=== PATIENT | male | born 1945 | race Caucasian/White ===

== ENCOUNTER → 2016-09-03 | Outpatient (CLI) | payer MEDICARE, OTHER ==
[~2016-09-03] MED LIST: AMILODIPINE
== END | disposition home or self-care (01) ==
LOC: CFH 09:24
PROVIDERS: ATTEND Family Medicine
DX: R14.0 Abdominal distension (gaseous) (principal)
CPT/HCPCS: 76700

== ENCOUNTER 2016-09-29 21:13 | Inpatient (IN) | payer MEDICARE, OTHER ==
[~2016-09-29] VITALS: Ht 177.8 cm; Wt 72.4 kg
[2016-09-29] MEDS ORDERED: SODIUM CHLORIDE FLUSH 10ML SYR IVF ONE (22:00)
[2016-09-29] MEDS ORDERED: ONDANSETRON 2MG/ML, 2ML IVPush ONE (22:00)
[2016-09-29] MEDS ORDERED: SODIUM CHLORIDE 0.9% 1,000ML IVBOLUS ONE (22:00)
[2016-09-29] MEDS ORDERED: MORPHINE SULFATE 4 MG/ML, 1ML IVPush PRN (22:00)
[2016-09-29] MEDS ORDERED: KETOROLAC 30 MG/1 ML IVPush ONE (22:00)
[2016-09-29] MEDS ORDERED: KETOROLAC 30 MG/1 ML ONE (22:11)
[2016-09-29] MEDS ORDERED: MORPHINE SULFATE 4 MG/ML, 1ML ONE (22:11)
[2016-09-29] MEDS ORDERED: ONDANSETRON 2MG/ML, 2ML ONE (22:12)
[2016-09-29 22:21] LABS: BLOOD UREA NITROGEN 21 mg/dL (7-18)
[2016-09-29 22:27] LABS: ASPARTATE AMINO TRANSFERASE 48 U/L (15-37)
[2016-09-29 22:30] LABS: IS PT STATUS REG ER OR PRE ER? YES
[2016-09-30] MEDS ORDERED: AMLO5TAB2 PO (00:27)
[2016-09-30] MEDS ORDERED: LEVO50TA5 PO (00:27)
[2016-09-30] MEDS ORDERED: ZEDIA PO (00:27)
[2016-09-30] MEDS ORDERED: GEMF600T3 PO ×2 (00:27→00:45)
[2016-09-30] MEDS ORDERED: HYDROcodone/APAP 5/325 TABLET PO PRN (00:30)
[2016-09-30] MEDS ORDERED: LABETALOL 5MG/ML 40ML VIAL IVPush PRN (00:30)
[2016-09-30] MEDS ORDERED: POLYETHYLENE GLYCOL 17 GM PACKET PO PRN (00:30)
[2016-09-30] MEDS ORDERED: ONDANSETRON 2MG/ML, 2ML IVPush PRN (00:30)
[2016-09-30] MEDS ORDERED: DOCUSATE 100 MG CAPSULE PO PRN (00:30)
[2016-09-30] MEDS ORDERED: morphine SULFATE 10 MG/ML, 1ML IVPush PRN (00:30)
[2016-09-30] MEDS ORDERED: BISACODYL 10 MG SUPP PR PRN (00:30)
[2016-09-30] MEDS ORDERED: MAGNESIUM CITRATE 300ML ORAL SOL PO ONE (00:30)
[2016-09-30] MEDS ORDERED: ACETAMINOPHEN 325 MG TABLET PO PRN (00:30)
[2016-09-30] MEDS ORDERED: ENOXAPARIN 40 MG/0.4 ML SQ SCH (00:30)
[2016-09-30] MEDS ORDERED: AMLO10TA2 PO (00:45)
[2016-09-30 03:20] VITALS: BP 147/74
[2016-09-30] MEDS: SODIUM CHLORIDE 0.9% 1,000 ML IV SCH ×2 (03:38→16:05)
[2016-09-30 08:30] VITALS: BP 152/78
[2016-09-30 14:30] VITALS: BP_SYST 146; BP_SYST 158; BP_DIAS 64; BP_DIAS 79
[2016-09-30 19:21] VITALS: BP 161/68
[2016-09-30] MEDS ORDERED: DIPHENHYDRAMINE 25 MG CAPSULE PO ONE (20:30)
[2016-10-01 00:48] VITALS: BP 135/61
[2016-10-01 05:29] LABS: ASPARTATE AMINO TRANSFERASE 80 U/L (15-37); BLOOD UREA NITROGEN 13 mg/dL (7-18)
[2016-10-01] MEDS ORDERED: LEVOTHYROXINE 50 MCG TABLET PO SCH (06:00)
[2016-10-01] MEDS ORDERED: BUPIVACAINE/PF-EPI 0.5% 1:200K ONE (06:41)
[2016-10-01 06:50] VITALS: BP 149/72
[2016-10-01] MEDS ORDERED: MEPERIDINE/PF 25MG/0.5ML IVPush PRN (08:00)
[2016-10-01] MEDS ORDERED: PROMETHAZINE 25 MG/ML, 1ML IV PRN (08:00)
[2016-10-01] MEDS ORDERED: HYDROmorphone 1 MG/ML, 1ML IV PRN (08:00)
[2016-10-01] MEDS ORDERED: hydrALAzine 20 MG/ML, 1ML IV PRN (08:00)
[2016-10-01] MEDS ORDERED: FENTANYL PF 100 MCG/2ML IV PRN (08:00)
[2016-10-01] MEDS ORDERED: LABETALOL 5MG/ML, 20ML IV PRN (08:00)
[2016-10-01] MEDS ORDERED: OXYcodone 5 MG/5 ML ORAL.SOL UDC PO PRN (08:00)
[2016-10-01] MEDS ORDERED: ONDANSETRON 2MG/ML, 2ML IVPush PRN (08:00)
[2016-10-01] MEDS ORDERED: METOCLOPRAMIDE 5 MG/ML, 2ML IV PRN (08:00)
[2016-10-01] MEDS ORDERED: PROPOFOL 10 MG/ML, 20ML ONE (08:06)
[2016-10-01] MEDS ORDERED: NEOSTIGMINE 1 MG/ML, 10ML ONE (08:06)
[2016-10-01] MEDS ORDERED: GLYCOPYRROLATE 0.2MG/1ML ONE (08:06)
[2016-10-01] MEDS ORDERED: ROCURONIUM 10 MG/ML ONE (08:06)
[2016-10-01] MEDS ORDERED: CEFOTETAN 2 GM ONE (08:06)
[2016-10-01] MEDS ORDERED: AMLODIPINE 2.5 MG TABLET PO SCH (09:00)
[2016-10-01] MEDS ORDERED: FENTANYL PF 100 MCG/2ML ONE (09:29)
[2016-10-01] MEDS ORDERED: OXYcodone 5 MG/5 ML ORAL.SOL UDC ONE (09:29)
[2016-10-01] MEDS ORDERED: HYDROcodone/APAP 5/325 TABLET PO PRN (09:30)
[2016-10-01] MEDS ORDERED: MORPHINE SULFATE 4 MG/ML, 1ML IVPush ONE (11:30)
[2016-10-01 14:00] VITALS: BP 140/75
[2016-10-01] MEDS ORDERED: HYDR-3240 PO (16:01)
[2016-10-01] MEDS ORDERED: DOCU-30 PO (16:02)
[2016-10-01] MEDS ORDERED: ONDA4TAB7 PO (16:02)
== END 2016-10-01 16:45 | disposition home or self-care (01) | DRG 419 ==
LOC: ED 22:10 → EDIP 09-30 00:09 → 3NE 09-30 03:13
PROVIDERS: ADMIT Internal Medicine; ATTEND Internal Medicine
PROC: 0FT44ZZ Resection of Gallbladder, Percutaneous Endoscopic Approach (ICD-10-PCS; principal; 2016-09-30)
DX: K80.11 Calculus of gallbladder with chronic cholecystitis with obstruction (principal); K59.00 Constipation, unspecified; E03.9 Hypothyroidism, unspecified; E78.5 Hyperlipidemia, unspecified; I11.9 Hypertensive heart disease without heart failure; R73.9 Hyperglycemia, unspecified; R74.0 Nonspecific elevation of levels of transaminase and lactic acid dehydrogenase [LDH]; Z88.0 Allergy status to penicillin; Z88.2 Allergy status to sulfonamides; Z88.8 Allergy status to other drugs, medicaments and biological substances; Z91.041 Radiographic dye allergy status
CPT/HCPCS: 36415; 74000; 76700; 78226; 80053; 81001; 83690; 84484; 85025; 87077; 87086; 87186; 88304; 93005; 96361; 96374; J1885; J2250; J2704; J2710; J3010; J3490; A9537; C9898; J2270; J7030; Q0163; S0074

== ENCOUNTER → 2016-10-07 | Outpatient (CLI) | payer MEDICARE, OTHER ==
[~2016-10-07] MED LIST changes: +AMLO10TA2 PO; +AMLO5TAB2 PO; +DOCU-30 PO; +FENTANYL PF 250 MCG/5ML ONE; +GEMF600T3 PO; +HYDR-3240 PO; +LEVO50TA5 PO; +MIDAZOLAM 1 MG/ML, 2ML ONE; +ONDA4TAB7 PO; +ZEDIA PO
== END ==
LOC: RAD 09:07
PROVIDERS: ATTEND Family Medicine
DX: Z02.9 Encounter for administrative examinations, unspecified (principal)
CPT/HCPCS: J2250; J3010

== ENCOUNTER → 2016-10-11 | Outpatient (CLI) | payer MEDICARE ==
[~2016-10-11] MED LIST changes: -FENTANYL PF 250 MCG/5ML ONE; -MIDAZOLAM 1 MG/ML, 2ML ONE
== END | disposition home or self-care (01) ==
LOC: CFH 09:44
PROVIDERS: ATTEND Family Medicine
DX: R13.10 Dysphagia, unspecified (principal); N28.89 Other specified disorders of kidney and ureter; Z90.49 Acquired absence of other specified parts of digestive tract
CPT/HCPCS: 74245

== ENCOUNTER 2017-03-05 11:39 | Emergency (ER) | payer OTHER ==
[~2017-03-05] VITALS: Ht 177.8 cm; Wt 76.0 kg
[~2017-03-05 11:39] MED LIST changes: +DOCU-131 PO; -DOCU-30 PO
[2017-03-05 12:36] LABS: HEMATOCRIT 43.4 % (39.2-51.8); HEMOGLOBIN 14.9 g/dL (13.7-18.0); WHITE BLOOD COUNT 3.8 x10^3/uL (3.4-10)
[2017-03-05 12:46] LABS: ASPARTATE AMINO TRANSFERASE 32 U/L (15-37); BLOOD UREA NITROGEN 11 mg/dL (7-18)
[2017-03-05 14:22] VITALS: BP 124/65
== END 2017-03-05 15:00 | disposition home or self-care (01) ==
LOC: ED 14:23
DX: R10.32 Left lower quadrant pain (principal); R63.0 Anorexia; E78.5 Hyperlipidemia, unspecified; E03.9 Hypothyroidism, unspecified; I10 Essential (primary) hypertension; Z91.041 Radiographic dye allergy status
CPT/HCPCS: 36415; 74176; 80053; 81003; 83605; 83690; 85025; 99285

== ENCOUNTER → 2017-06-19 | Outpatient (CLI) | payer MEDICARE | END | disposition home or self-care (01) | LOC: CFH 06:55 | PROVIDERS: ATTEND Family Medicine | DX: K76.0 Fatty (change of) liver, not elsewhere classified (principal) | CPT/HCPCS: 76700 ==

== ENCOUNTER → 2017-08-27 | Outpatient (CLI) | payer MEDICARE | LOC: CFH 07:44 | PROVIDERS: ATTEND Family Medicine | DX: M47.22 Other spondylosis with radiculopathy, cervical region (principal); M48.02 Spinal stenosis, cervical region | CPT/HCPCS: 72141 ==

== ENCOUNTER → 2018-04-06 | Outpatient (CLI) | payer MEDICARE ==
[~2018-04-06] MED LIST changes: +AMLO-150 PO; -AMLO10TA2 PO; +AMLO10TA6 PO; -AMLO5TAB2 PO; -GEMF600T3 PO; +GEMF600T4 PO
== END | disposition home or self-care (01) ==
LOC: CFH 09:22
PROVIDERS: ATTEND Family Medicine
DX: K57.30 Diverticulosis of large intestine without perforation or abscess without bleeding (principal)
CPT/HCPCS: 74245

== ENCOUNTER → 2019-03-05 | Outpatient (CLI) | payer MEDICARE ==
[~2019-03-05] MED LIST changes: -AMLO10TA6 PO; +AMLO10TA8 PO; -GEMF600T4 PO; +GEMF600T8 PO
== END | disposition home or self-care (01) ==
LOC: CFH 12:22
PROVIDERS: ATTEND Family Medicine
DX: K76.0 Fatty (change of) liver, not elsewhere classified (principal); R10.9 Unspecified abdominal pain; Z90.49 Acquired absence of other specified parts of digestive tract
CPT/HCPCS: 76700

== ENCOUNTER 2019-05-27 17:06 | Emergency (ER) | payer MEDICARE ==
[~2019-05-27] VITALS: Ht 180.3 cm; Wt 80.0 kg
[~2019-05-27 17:06] MED LIST changes: -AZIT200S PO; -GADOTERATE 7.5 MMOL/15 ML VIAL ONE; -LEVO25TA4 PO; -LISI5TAB7 PO
--- NOTE | 2019-05-27 17:09 | NUR ---
patient arrives directly from mri where he was having an mri of abdomen bladder because a month ago he was peeing win blood. in mri today when given contrast he became hypertensive. he is now 204/88 with no chest pain and airway is clear and easy to breath - no sob and no s/s distress. md hernandez at bedside.
[2019-05-27] MEDS ORDERED: LISI5TAB7 PO (17:17)
[2019-05-27] MEDS ORDERED: LEVO25TA4 PO (17:17)
--- NOTE | 2019-05-27 17:17 | NUR ---
patient also on zithromycin for sinus infection
[2019-05-27] MEDS ORDERED: AZIT200S PO (17:18)
--- NOTE | 2019-05-27 17:19 | NUR ---
patient refused klonidine and xanax when asked him, which was md hernandez's recomendation. states he feels fine
[2019-05-27 17:34] VITALS: BP 168/82
== END 2019-05-27 17:37 | disposition home or self-care (01) ==
LOC: ED 17:30
DX: I10 Essential (primary) hypertension (principal); E78.5 Hyperlipidemia, unspecified; E03.9 Hypothyroidism, unspecified
CPT/HCPCS: 99281

== ENCOUNTER → 2019-05-27 | Outpatient (CLI) | payer MEDICARE ==
[~2019-05-27] MED LIST changes: +AZIT200S PO; +GADOTERATE 7.5 MMOL/15 ML VIAL ONE; +LEVO25TA4 PO; +LISI5TAB7 PO
== END | disposition home or self-care (01) ==
LOC: RAD 13:48
PROVIDERS: ATTEND Student in an Organized Health Care Education/Training Program
DX: N28.1 Cyst of kidney, acquired (principal); Q64.4 Malformation of urachus; Z90.49 Acquired absence of other specified parts of digestive tract
CPT/HCPCS: 72197; 74183; A9575

== ENCOUNTER 2019-06-06 09:05 | Emergency (ER) | payer MEDICARE ==
[~2019-06-06] VITALS: Ht 177.8 cm; Wt 77.2 kg
[~2019-06-06 09:05] MED LIST changes: +AZIT200S PO; +LEVO25TA4 PO; +LISI5TAB7 PO
--- NOTE | 2019-06-06 09:37 | NUR ---
SPECIAL CONTACT PRECAUTIONS IN PLACE, PT DRESSED IN GOWN, AWAITING MD ASSESSMENT AND ORDERS.
[2019-06-06] MEDS ORDERED: HALOPERIDOL 5 MG/ML IM ONE (10:00)
[2019-06-06 10:02] LABS: BASOPHILS # (AUTO) 0.02 x10^3/uL (0-0.1); BASOPHILS % (AUTO) 1 % (0-1); EOSINOPHILS # (AUTO) 0.05 x10^3/uL (0-0.4); EOSINOPHILS % (AUTO) 2 % (1-7); LYMPHOCYTES # (AUTO) 1.07 x10^3/uL (1-3.4); LYMPHOCYTES % (AUTO) 31 % (22-44); MD NO; MEAN CORPUSCULAR HEMOGLOBIN 30.8 pg (27.5-34.5); MEAN CORPUSCULAR VOLUME 90.7 fL (81-97); MEAN PLATELET VOLUME 9.1 fL (7.4-10.4); MONOCYTES # (AUTO) 0.34 x10^3/uL (0.2-0.8); MONOCYTES % (AUTO) 10 % (2-9); NEUTROPHILS # (AUTO) 1.97 x10^3/uL (1.8-6.8); NEUTROPHILS % (AUTO) 57 % (42-75); PLATELET COUNT 175 x10^3/uL (130-400); RED BLOOD COUNT 4.88 x10^6/uL (4.38-5.82); RED CELL DISTRIBUTION WIDTH 14.5 % (9.4-14.8)
[2019-06-06 10:11] LABS: ALBUMIN 3.8 g/dL (3.4-5.0); ANION GAP 8 mmol/L (5-15); CALCIUM 8.8 mg/dL (8.5-10.1); CHLORIDE 107 mmol/L (98-107); CREATININE 1.12 mg/dL (0.7-1.3)
--- NOTE | 2019-06-06 10:46 | NUR ---
pt presents to ED with c/o diarrhea x 5 days, onset after finishing 2 courses of antibiotics s/p cystoscopy to correct bph. pt denies abd pain. pt denies hx cdiff pt able to provide stool sample, stool is formed. stool taken to lab, LILLY Kumari notified. pt is a&o, resps even and unlabored, nadn. awaiting lab results and dispo.
--- NOTE | 2019-06-06 11:17 | NUR ---
LUNCH RN: PT RESTING COMFORTABLY IN BED, NO REPORTS OF PAIN OR DISCOMFORT. VSS AT THIS TIME. CALL LIGHT WITHIN REACH. AWAITING TEST RESULTS AND DISPO
[2019-06-06 11:22] LABS: CLOSTRIDIUM DIFFICILE ANTIGEN NEGATIVE; CLOSTRIDIUM DIFFICILE TOXIN NEGATIVE (Negative)
[2019-06-06 12:37] VITALS: BP 123/74
--- NOTE | 2019-06-06 12:38 | NUR ---
PT GIVEN DC INSTRUCTIONS, PT A&O, RESPS EVEN AND UNLABORED. PT AMBULATORY WITH STEADY GAIT TO DC. NO COMPLAINT AT DC.
== END 2019-06-06 12:39 | disposition home or self-care (01) ==
LOC: ED 12:20
DX: R19.7 Diarrhea, unspecified (principal); I10 Essential (primary) hypertension; E78.5 Hyperlipidemia, unspecified; E03.9 Hypothyroidism, unspecified
CPT/HCPCS: 36415; 80048; 82040; 85025; 87324; 89055; 99283

== ENCOUNTER → 2019-09-10 | Outpatient (CLI) | payer MEDICARE | END | disposition home or self-care (01) | LOC: CVU 06:54 | PROVIDERS: ATTEND Nurse Practitioner Family | DX: I08.8 Other rheumatic multiple valve diseases (principal); I65.23 Occlusion and stenosis of bilateral carotid arteries; I11.9 Hypertensive heart disease without heart failure; R00.1 Bradycardia, unspecified; H53.8 Other visual disturbances | CPT/HCPCS: 93306; 93356; 93880 ==